=== PATIENT | male | born 1980 | race Caucasian/White ===

== ENCOUNTER 2024-01-08 20:11 | Emergency (ER) | payer OTHER, SELFPAY ==
[2024-01-08 20:15] VITALS: BP 153/97
[2024-01-08 20:52] VITALS: BP 120/73
[2024-01-08 21:00] VITALS: BP 119/75
[2024-01-08 21:15] LABS: % Basophils 0.5 % (0-2); % Eosinophils 0.4 % (0-6); % Immature Granulocytes 0.4 % (0-0.5); % Lymphocytes 8.3 % (20.5-51.1); % Monocytes 4.8 % (1.7-9.3); % Neutrophils 85.6 % (42.2-75.2); Absolute Basophils 0.1 10^3/uL (0-0.2); Absolute Eosinophils 0.1 10^3/uL (0-0.7); Absolute Immature Granulocytes 0.1 10^3/uL (0-0.05); Absolute Lymphocytes 1.6 10^3/uL (1.2-3.4); Absolute Monocytes 0.9 10^3/uL (0.1-0.6); Absolute Neutrophils 16.5 10^3/uL (1.4-6.5); Hematocrit 37.6 % (39.0-52.0); Hemoglobin 13.1 g/dL (13.0-18.0); Mean Corp Hgb Conc. 34.8 g/dL (33.0-37.0); Mean Corpuscular Hgb 30.6 pg (27.0-31.0); Mean Corpuscular Volume 87.9 fL (80.0-94.0); Mean Platelet Volume 12.4 fL (7.4-10.4); Nucleated Red Blood Cells % 0 % (-); Platelet Count 155 10^3/uL (130-400); Red Blood Cell Count 4.28 10^6/uL (4.70-6.10); Red Cell Dist. Width 13.6 % (11.5-14.5); White Blood Cell Count 19.3 10^3/uL (4.8-10.8)
[2024-01-08 21:34] LABS: ALT (SGPT) 44 U/L (0-50); AST (SGOT) 37 U/L (17-59); Albumin 4.6 g/dl (3.5-5.0); Alkaline Phosphatase 72 U/L (38-126); Blood Urea Nitrogen 14 mg/dl (9-20); Calcium 9.8 mg/dl (8.4-10.2); Carbon Dioxide 30 mmol/L (22-30); Chloride 100 mmol/L (98-107); Estimated Creatinine Clearance 104 ml/min; Glucose 108 mg/dl (70-99); Potassium 3.9 mmol/L (3.5-5.1); Sodium 142 mmol/L (135-145); Total Bilirubin 0.6 mg/dl (0.2-1.3); Total Protein 6.9 g/dl (6.3-8.2); eGFR > 60.00
--- NOTE | 2024-01-08 21:37 | ED.GENMED ---
History of Present Illness
General
Chief Complaint: Chest Pain
Source: patient
Time Seen by Provider: 01/08/24 20:53
History of Present Illness
History of Present Illness:
43-year-old male presents to the emergency room complaining of pain left side of his chest. Patient states the pain began fairly suddenly this evening. 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 Patient has noticed a cough recently.
No known fever. He does not feel short of breath. No trauma. Patient endorses smoking about a half a pack a day.
Past History
Past History
ED Past Medical History: None; Negative Asthma, HTN, Hypercholesterolemia or NIDDM
ED Past Surgical History: None
Social History
Tobacco: Smoker
Alcohol: Daily (Beer 5-6)
Personal:
Living: with family
Phy Exam
Physical Exam
Physical Exam:
General: Awake, Alert, Oriented X3. No acute distress.
Vitals: unremarkable
Head: Atraumatic
Eyes: Pupils equal, EOMI
Throat: Airway intact, no exudates
Neck: Trachea midline
Lungs: Clear and equal b/l
Heart: Regular rate, no murmurs
Abd: Soft, Nontender, No pulsatile mass
Neuro: Nonfocal
Skin: Warm, dry, no rash
Extremities: pulses equal b/l, no edema
Scores
Heart Score for Chest Pain Patients
STEMI patient?: Not applicable
Course
Orders/Labs/Results
Orders:
Orders
01/08/24 20:12
Electrocardiogram (*1) Urgent
Reason for Study: Chest Pain
EKG- Treatment ONCE
01/08/24 20:21
CR Chest - 2 Views Urgent
Comment:
Reason For Exam: chest pain
01/08/24 21:08
Complete Blood Count/With Diff Urgent
Comprehensive Metabolic Panel Urgent
Troponin I Urgent
01/08/24 21:45
Electrocardiogram (*1) Urgent
Reason for Study: Chest Pain
EKG- Treatment ONCE
01/08/24 21:54
Doxycycline [Vibramycin] 100 mg PO NOW STA
01/08/24 21:55
Ketorolac [Toradol] 15 mg IV NOW STA
Abnormal Lab Results
01/08/24
21:08
WBC 19.3 H 10^3/uL
(4.8-10.8)
RBC 4.28 L 10^6/uL
(4.70-6.10)
Hct 37.6 L %
(39.0-52.0)
MPV 12.4 H fL
(7.4-10.4)
Abs Immat Gran (auto) 0.1 H 10^3/uL
(0-0.05)
Absolute Neuts (auto) 16.5 H 10^3/uL
(1.4-6.5)
Absolute Monos (auto) 0.9 H 10^3/uL
(0.1-0.6)
Neutrophils % 85.6 H %
(42.2-75.2)
Lymphocytes % 8.3 L %
(20.5-51.1)
Glucose 108 H mg/dl
(70-99)
01/08/24 21:08
01/08/24 21:08
Vital Signs
Initial and Last Documented VS:
Initial Vital Signs
Temp Pulse Resp BP Pulse Ox
98.7 F 83 20 153/97 98
01/08/24 20:15 01/08/24 20:15 01/08/24 20:15 01/08/24 20:15 01/08/24 20:15
Last Documented Vital Signs
Temp Pulse Resp BP Pulse Ox
98.7 F 77 19 119/75 96
01/08/24 20:15 01/08/24 21:00 01/08/24 21:00 01/08/24 21:00 01/08/24 21:00
MDM/Problems Addressed
Differential Diagnosis Includes:
Spontaneous pneumothorax, pneumonia, pulmonary embolism, musculoskeletal pain
MDM/Problems Addressed:
Patient presents with fairly sudden onset of left-sided chest pain. He is afebrile here. Labs show an elevated white blood cell count. Chest x-ray shows left sided infiltrate. Patient is not tachycardic. He does not have risk factors for PE.
Given the chest x-ray reveals pneumonia this is unsure the diagnosis and cause for his pain. Will treat him with doxycycline. Patient given a dose here and a prescription sent to his pharmacy for 1 pill twice a day for a week. Return for any
worsening of symptoms.
*Radiology
Radiology exam reviewed: radiology read reviewed
*Pulse Oximetry
Patient hypoxic: no
*EKG
Interpreted by ED Provider?: Yes
Heart Rate: 72
Rate: normal
Rhythm: sinus
Clyde: normal axis
Interval: normal interval
QRS Pattern: normal QRS
Ischemia: no ischemia
*Psychiatric Aide Interpretation
Rate: normal
Interpretation: normal
Rhythm: sinus
*Critical Care Note
Total Time (30-74mins, 75-104mins- exclusive of procedures): Not Applicable
ED Attending Note
-
Portions of this chart may have been created with voice recognition software.� Occasional wrong word or��sound alike� substitutions may have occurred due to the inherent limitations of voice recognition software.
Discharge Plan
Departure
Patient Disposition: Home (Routine Discharge)
Date of Disposition: 01/08/24
Time of Disposition: 21:55
Patient with high blood pressure during this ER visit?: No
Condition: Good
Discharge Problem:
Pneumonia
Instructions: Pneumonia in adults
Prescriptions:
New
doxycycline hyclate 100 mg tablet
100 mg PO BID Qty: 14 0RF
No Action
multivitamin 1 EACH tablet
1 ea PO DAILY
Referrals:
UNKNOWN - PT DOES,NOT KNOW [Unknown Provider] -
Activity Restrictions/Additional Instructions:
Return to the ER if you are feeling short of breath or feel you are getting worse in any way.
Interventions
Interventions:
*Risk Screen - Suicide Last Done: 01/08/24 20:15
*General Assessment Last Done: 01/08/24 21:09
*Neglect/Abuse Screening Last Done: 01/08/24 20:44
*Nursing Disposition Last Done: 01/08/24 22:16
ED- Cardiac Assessment Last Done: 01/08/24 21:09
Discharge Date and Time
Discharge Date/Time: 01/08/24 22:16
Print Language: MALAY
[2024-01-08 21:41] LABS: Troponin I 0.015 ng/ml
[2024-01-08] MEDS: VIBRAMYCIN 100 MG PO (22:05)
[2024-01-08] MEDS: TORADOL 15 MG IV (22:05)
== END 2024-01-08 22:16 | disposition home or self-care (01) ==
LOC: EMR 20:11
PROVIDERS: Emergency Medicine; EMERGENCY PHYSICIAN Emergency Medicine; FAMILY PHYSICIAN Internal Medicine
DX: J18.9 Pneumonia, unspecified organism (principal)
CPT/HCPCS: 99283; 96374; 71046; 80053; 84484; 85025; 93005

== ENCOUNTER → 2024-04-02 09:59 | Outpatient (REF) | payer OTHER, SELFPAY | LOC: REG 09:59 | PROVIDERS: ATTENDING PHYSICIAN Hospitalist | DX: J06.9 Acute upper respiratory infection, unspecified (principal) | CPT/HCPCS: 71046 ==

== ENCOUNTER → 2024-11-11 13:51 | Outpatient (REF) | payer OTHER, SELFPAY | LOC: RAD 13:51 | PROVIDERS: ATTENDING PHYSICIAN Nurse Practitioner | DX: S80.11XA Contusion of right lower leg, initial encounter (principal) | CPT/HCPCS: 73590; 93971 ==